=== PATIENT | female | born 1945 | race Caucasian/White ===

== ENCOUNTER → 2024-10-05 | Outpatient (CLI) | payer MEDICARE, BC, SELFPAY ==
[2024-10-05 10:38] LABS: Basophils % (Auto) 1 % (0-2.5); Eosinophils # (Auto) 0.2 Thou/mm3 (0.0-0.5); Eosinophils % (Auto) 4 % (0-10); Hematocrit 37.1 % (36.0-46.0); Hemoglobin 12.2 g/dL (12.0-16.0); Immature Granulocytes % (Auto) 0 % (0-0); Immature Granulocytes Auto 0.01 Thou/mm3 (0.00-0.00); Lymphocytes # (Auto) 1.4 Thou/mm3 (1.0-4.8); Lymphocytes % (Auto) 31 % (10-50); Mean Corpuscular HGB Conc 32.9 g/dl (31.0-37.0); Mean Corpuscular Hemoglobin 28.5 pg (25.0-35.0); Mean Corpuscular Volume 87 fL (80-100); Monocytes # (Auto) 0.3 Thou/mm3 (0.0-0.8); Monocytes % (Auto) 7 % (0-12); Neutrophils # (Auto) 2.6 Thou/mm3 (1.8-7.7); Neutrophils % (Auto) 57 % (37-80); Nucleated Red Blood Cell % 0 /100 WBC (0); Platelet Count 181 Thou/mm3 (140-440); RDW Standard Deviation 46.8 fL (36.4-46.3); Red Blood Count 4.28 Miln/mm3 (4.00-5.20); White Blood Count 4.6 Thou/mm3 (3.6-11.0)
[2024-10-05 10:43] LABS: Glucose Estimated Average 217 mg/dL (80-131); Hemoglobin A1C 9.2 % Hgb (4.8-6.0)
[2024-10-05 10:55] LABS: Alanine Aminotransferase 13 U/L (10-49); Albumin, Serum 4.1 gm/dL (3.4-4.8); Albumin/Globulin Ratio 1.6 (1.2-2.2); Alkaline Phosphatase 132 U/L (46-116); Anion Gap 9 (7-16); Aspartate Amino Transferase 28 U/L (0-34); BUN/Creatinine Ratio 33 Ratio (12-20); Bilirubin,Direct 0.1 mg/dL (0.0-0.3); Bilirubin,Total 0.4 mg/dL (0.3-1.2); Blood Urea Nitrogen 36 mg/dL (9-23); Calcium 9.3 mg/dL (8.3-10.6); Calcium (Corrected) 9.3 mg/dL (8.5-10.1); Carbon Dioxide 28.2 mMol/L (20.0-31.0); Chloride 105 mMol/L (98-107); Cholesterol 154 mg/dL (132-200); Creatinine (Component) 1.1 mg/dL (0.6-1.3); Globulin 2.6 gm/dL (2.3-3.5); Glucose 210 mg/dL (74-106); HDL Cholesterol 52 mg/dL (40-60); LDL Cholesterol,Calculated 75 mg/dL (0-130); Osmolality,Calculated 297 (275-295); Phosphorous 3.9 mg/dL (2.4-5.1); Potassium 3.5 mMol/L (3.4-5.1); Sodium 142 mMol/L (136-145); Thyroid Stimulating Hormone 2.31 uIU/mL (0.55-4.78); Total Protein 6.7 gm/dL (5.7-8.2); Triglycerides 134 mg/dL (30-150); eGFR 50 See Note
[2024-10-05 11:15] LABS: Collection Type, Urine Clean Catch
[2024-10-05 11:59] LABS: Bacteria,Urine 2+; Bilirubin,Urine Negative (Negative); Blood,Urine Trace (Negative); Calcium Oxalate Crystals,Urine Rare; Color,Urine Yellow (Lt Yel-Yel); Glucose, Urine 2+ (Negative); Ketones,Urine Negative (Negative); Leukocyte Esterase,Urine Positive (Negative); Nitrite,Urine Negative (Negative); PH,Urine 5.5 (5.0-7.0); Protein,Urine 1+ (Neg - Trace); RBC,Urine 4 /hpf (0-3); Specific Gravity,Urine 1.028 (1.001-1.035); Squamous Epithelial Cell,Urine 6 /hpf (0-5); Transitional Epi Cells,Urine 1 /hpf (0-5); Urobilinogen,Urine Negative mg/dL (0.0-1.0); WBC,Urine 12 /hpf (0-5)
[2024-10-05 12:17] LABS: Clarity,Urine Hazy (Clear/Hazy)
[2024-10-10 06:51] LABS: C-Peptide* 1.44 ng/mL (0.80-3.85)
== END | disposition home or self-care (01) ==
LOC: COPL 09:28
PROVIDERS: PCP Internal Medicine; Referring Provider Internal Medicine; Visit Provider Internal Medicine
DX: E11.9 Type 2 diabetes mellitus without complications (principal); E78.5 Hyperlipidemia, unspecified; I10 Essential (primary) hypertension
CPT/HCPCS: 36415; 80053; 80061; 81001; 82248; 83036; 84100; 84443; 84681; 85025

== ENCOUNTER → 2024-11-24 | Outpatient (CLI) | payer MEDICARE, BC, SELFPAY ==
[2024-11-24 10:50] LABS: Alanine Aminotransferase 14 U/L (10-49); Albumin, Serum 4.3 gm/dL (3.4-4.8); Albumin/Globulin Ratio 1.7 (1.2-2.2); Alkaline Phosphatase 142 U/L (46-116); Anion Gap 12 (7-16); Aspartate Amino Transferase 22 U/L (0-34); BUN/Creatinine Ratio 23 Ratio (12-20); Bilirubin,Total 0.3 mg/dL (0.3-1.2); Blood Urea Nitrogen 30 mg/dL (9-23); Calcium 9.5 mg/dL (8.3-10.6); Calcium (Corrected) 9.5 mg/dL (8.5-10.1); Carbon Dioxide 25.5 mMol/L (20.0-31.0); Chloride 103 mMol/L (98-107); Creatinine (Component) 1.3 mg/dL (0.6-1.3); Globulin 2.5 gm/dL (2.3-3.5); Glucose 202 mg/dL (74-106); Osmolality,Calculated 291 (275-295); Potassium 4.4 mMol/L (3.4-5.1); Sodium 140 mMol/L (136-145); Total Protein 6.8 gm/dL (5.7-8.2); eGFR 41 See Note
[2024-11-24 14:21] LABS: Cocci Serology, IgM Negative (Negative)
[2024-11-25 13:58] LABS: Cocci Serology, IgG Negative (Negative)
== END | disposition home or self-care (01) ==
LOC: COPL 09:45
PROVIDERS: PCP Internal Medicine; Referring Provider Internal Medicine; Visit Provider Internal Medicine
DX: B38.0 Acute pulmonary coccidioidomycosis (principal); N18.30 Chronic kidney disease, stage 3 unspecified
CPT/HCPCS: 36415; 80053; 86331; 86635

== ENCOUNTER → 2024-12-07 | Outpatient (CLI) | payer MEDICARE, BC, SELFPAY ==
--- NOTE | 2024-12-07 11:33 | EKG_ITS ---
[facility] Test Date: 2024-12-07 Pat Name: BJ SHEPARD Department: Room: - Gender: Female Scheduling Assistant: MONA : 1945 Requested By: Taco Collins Order Number: [id number] Reading MD: Taco Collins Measurements Intervals [place] Rate: 84 P: 171 MS: 147 QRS: 188 QRSD: 64 T: 95 QT: 330 QTc: 391 Interpretive Statements SINUS RHYTHM ARM LEADS REVERSED ATYPICAL ECG Compared to ECG 08/12/2024 14:17:31 Sinus tachycardia no longer present ST (T wave) deviation no longer present /store/S0/[id number]/ecg/[id number].pdf
[2024-12-07 12:06] LABS: Basophils % (Auto) 0 % (0-2.5); Eosinophils # (Auto) 0.1 Thou/mm3 (0.0-0.5); Eosinophils % (Auto) 2 % (0-10); Hematocrit 40.5 % (36.0-46.0); Hemoglobin 13.4 g/dL (12.0-16.0); Immature Granulocytes % (Auto) 0 % (0-0); Immature Granulocytes Auto 0.02 Thou/mm3 (0.00-0.00); Lymphocytes # (Auto) 1.3 Thou/mm3 (1.0-4.8); Lymphocytes % (Auto) 26 % (10-50); Mean Corpuscular HGB Conc 33.1 g/dl (31.0-37.0); Mean Corpuscular Hemoglobin 28.6 pg (25.0-35.0); Mean Corpuscular Volume 86 fL (80-100); Monocytes # (Auto) 0.3 Thou/mm3 (0.0-0.8); Monocytes % (Auto) 5 % (0-12); Neutrophils # (Auto) 3.4 Thou/mm3 (1.8-7.7); Neutrophils % (Auto) 66 % (37-80); Nucleated Red Blood Cell % 0 /100 WBC (0); Platelet Count 218 Thou/mm3 (140-440); RDW Standard Deviation 46.3 fL (36.4-46.3); Red Blood Count 4.69 Miln/mm3 (4.00-5.20); White Blood Count 5.1 Thou/mm3 (3.6-11.0)
[2024-12-07 12:46] LABS: Alanine Aminotransferase 12 U/L (10-49); Albumin/Globulin Ratio 1.5 (1.2-2.2); Alkaline Phosphatase 139 U/L (46-116); Anion Gap 6 (7-16); Aspartate Amino Transferase 23 U/L (0-34); BUN/Creatinine Ratio 27 Ratio (12-20); Bilirubin,Total 0.3 mg/dL (0.3-1.2); Blood Urea Nitrogen 30 mg/dL (9-23); Calcium 9.5 mg/dL (8.3-10.6); Calcium (Corrected) 9.5 mg/dL (8.5-10.1); Carbon Dioxide 29.7 mMol/L (20.0-31.0); Chloride 103 mMol/L (98-107); Creatinine (Component) 1.1 mg/dL (0.6-1.3); Globulin 2.7 gm/dL (2.3-3.5); Osmolality,Calculated 301 (275-295); Potassium 4.9 mMol/L (3.4-5.1); Sodium 139 mMol/L (136-145); Total Protein 6.7 gm/dL (5.7-8.2); eGFR 50 See Note
[2024-12-07 13:04] LABS: Glucose 417 mg/dL (74-106)
== END | disposition home or self-care (01) ==
LOC: COPL 11:05
PROVIDERS: PCP Internal Medicine; Referring Provider Surgery Vascular Surgery; Visit Provider Surgery Vascular Surgery
DX: Z01.818 Encounter for other preprocedural examination (principal); I73.9 Peripheral vascular disease, unspecified; Z79.01 Long term (current) use of anticoagulants
CPT/HCPCS: 36415; 80053; 85025; 85610; 85730; 93005

== ENCOUNTER 2025-01-13 19:15 | Inpatient (IN) | payer MEDICARE, BC, SELFPAY ==
[2025-01-13 19:36] VITALS: BP 150/71; PULSE 89; RESP 18; TEMP 36.7; O2SAT 95
--- NOTE | 2025-01-13 19:41 | XR_ITS ---
Examination: Foot, left, 3 views Technique: AP, oblique, lateral views foot, 3 views Date and time of exam: January 13, 2025 at 1900 hrs. Indications: Nonhealing sore fourth digit 2 months Findings: 3 mm linear foreign body soft tissue adjacent to the proximal phalanx second digit Severe osteopenia No acute fracture No cortical bone destruction Soft tissue vascular calcification Impression: Positive for opaque foreign body No chinyere cortical bone destruction MRI foot without contrast follow-up would best assess for early osteomyelitis
--- NOTE | 2025-01-13 19:41 | PD.EDRME ---
Rapid Medical Screening Exam E Arrival date/time: 01/13/25 19:15 79F with history of HTN, DM, CVA, HLD, PAD, toe amputation and MRSA infection presents to ED with worsening L foot pain/wound. Patient is currently on Keflex. Chief Complaint: Skin/Abscess/Foreign Body Time Seen by Provider: 01/13/25 19:40 Vital signs: Vital Signs Temperature 98.0 F 01/13/25 19:36 Pulse Rate 89 01/13/25 19:36 Respiratory Rate 18 01/13/25 19:36 Blood Pressure 150/71 H 01/13/25 19:36 Pulse Oximetry (%) 95 01/13/25 19:36 Oxygen Delivery Method Room Air 01/13/25 19:36
--- NOTE | 2025-01-13 20:23 | PD.EDSKIN ---
ED Skin Abcess FB-RME/HPI General Chief complaint: Skin/Abscess/Foreign Body Stated complaint: LEFT FOOT WOUND/PAIN Time Seen by Provider: 01/13/25 19:40 Source: patient Arrival date/time: 01/13/25 19:15 Mode of arrival: ambulatory Limitations: no limitations RME / HPI RME / HPI narrative: Dr. Jimenez?s Main ED Evaluation: 79-year-old female with a history of hypertension, diabetes mellitus, cerebrovascular accident, hyperlipidemia, peripheral artery disease, prior toe amputation, and MRSA infection presents with worsening left foot pain and an ulcerating wound despite being on Keflex. Denies any other medical complaints. Related Data Home Medications ?Medication ?Instructions ?Recorded ?Confirmed clopidogrel 75 mg tablet (Plavix) 75 mg PO QDAY #0 tabs 10/04/17 08/13/24 pregabalin 75 mg capsule 75 mg PO DAILY 05/20/21 08/13/24 rivastigmine tartrate 3 mg capsule 3 mg PO BID 05/20/21 08/13/24 rosuvastatin 20 mg tablet 20 mg PO HS 05/20/21 08/13/24 glimepiride 1 mg tablet 1 mg PO BID 06/01/23 08/13/24 Held on 08/15/24. Instructions: Resume on 08/29/24. Follow up with Dr. Peng on when to resume glimepiride, as you have been started on different medications for your diabetes. promethazine-DM 6.25 mg-15 mg/5 mL 5 ml PO TID 08/12/24 08/13/24 oral syrup lisinopril 10 mg tablet 10 mg PO QDAY 08/13/24 08/13/24 Previous Rx's ?Medication ?Instructions ?Recorded fluconazole 200 mg tablet 200 mg PO BID 30 days #60 tabs 08/15/24 insulin glargine 100 unit/mL (3 10 unit (0.1 mL) subcut QPM 30 08/15/24 mL) subcutaneous pen (Lantus days #3 mL Solostar U-100 Insulin) pen needle, diabetic 32 gauge x #120 ea 08/15/24 1/6 benzonatate 100 mg capsule 100 mg PO TID cough #14 caps 08/16/24 blood pressure test kit-medium #1 ea 08/16/24 insulin lispro 100 unit/mL 3 unit (0.03 mL) subcut TIDWMEAL 1 08/16/24 subcutaneous pen (Humalog KwikPen month #15 mL (U-100) Insulin) Allergies Allergy/AdvReac Type Severity Reaction Status Date / Time No Known Allergies Allergy Verified 01/13/25 23:11 Review of Systems Review of Systems Systems Reviewed: All systems reviewed, normal except as documented Past Medical History Past Medical History NEUROLOGIC: Positive Neurological Disorders, Cerebrovascular Accident, Transient Ischemic Attacks (TIA), Dementia and Alzheimer's Disease; Negative Seizures CARDIAC: Positive Cardiac Disorders, Coronary Artery Disease, Hypercholesterolemia and Hypertension; Negative Congestive Heart Failure RESPIRATORY: Negative Chronic Obstructive Pulmonary Disease (COPD) or Asthma GASTROINTESTINAL: Positive Gastrointestinal Disorders GENITOURINARY: Positive Genitourinary Disorders; Negative Renal Disease REPRODUCTIVE: Positive Previous Pregnancies MUSCULOSKELETAL: Positive Musculoskeletal Disorders, Arthritis, Carpal Tunnel Syndrome and Fractures ENDOCRINE: Positive Endocrine Disorders and Diabetes Mellitus Type 2; Negative Diabetes Mellitus Type 1 HEMATOLOGIC: Negative Blood Disorders or Anemia PSYCHO/SOCIAL: Positive Depression and Anxiety OTHER HISTORY: Positive Hospitalization, Falls and MRSA; Negative Blood Transfusions, Anesthesia Reactions or Cancer Surgical History SURGICAL: Positive Abdominal Surgery and Amputation (all right toes); Negative Cardiac Surgery Social History SMOKING STATUS: Never smoker SECOND HAND EXPOSURE: No SUBSTANCE USE: does not use ED Exam Narrative Physical exam: Physical exam reveals mild swelling of all left four toes, with the fourth toe exhibiting a chronic ulcer on the lateral aspect that appears dark black but non-gangrenous; all toes are erythematous, with redness extending up the anterior leg, which is minimally tender to touch, without drainage. General Limitations: Present no limitations General appearance: Present alert and in no apparent distress Head Head exam: Present atraumatic Eye Eye exam: Present normal appearance, PERRL and EOMI ENT ENT exam: Present normal exam, normal oropharynx and mucous membranes moist Neck Neck exam: Present normal inspection, full ROM and trachea midline Chest Chest inspection: Present normal inspection and symmetric chest wall rise Respiratory Respiratory exam: Present normal lung sounds bilaterally Cardiovascular Cardiovascular exam: Present regular rate, normal rhythm and normal heart sounds Abdominal Exam Abdominal exam: Present soft and normal bowel sounds Extremities Exam Extremities exam: Present normal inspection, full ROM and other (toes to the right foot are missing s/p amputation) Back Exam Back exam: Present normal inspection and full ROM Neurological Exam Neurological exam: Present alert, oriented X3 and CN II-XII intact Psychiatric Psychiatric exam: Present normal affect and normal mood Skin Skin exam: Present warm, dry, intact and normal color Course Quality Measures none Orders Category Date Time Status COVID-19 Screening Questionnaire NOW Care 01/14/25 05:[address] Screening NOW Care 01/13/25 22:34 Active Decision to Admit X1 Care 01/14/25 05:[address] angio LE LT Stat Exams 01/13/25 22:33 Taken XR foot comp LT min 3V Stat Exams 01/13/25 19:41 Completed CBC Stat Lab 01/13/25 20:42 Completed CMP [Comprehensive Metabolic Panel] Stat Lab 01/13/25 20:42 Completed CRP [C-Reactive Protein] Stat Lab 01/13/25 20:42 Completed ESR [Sed Rate (ESR)] Stat Lab 01/13/25 20:42 Completed Piper/Tazo 3.375 gm Premix [Zosyn] Med 01/13/25 22:37 Discontinued 3.375 gm in 50 ml IV X1 Vancomycin Inj 1,000 mg Med 01/14/25 02:00 Discontinued Sodium Chloride 0.9% 250 ml [Ns] 250 ml IV X1 fentaNYL INJ [Sublimaze Inj] Med 01/14/25 02:16 Discontinued 50 mcg IVP X1 ONE Vital Signs Vital signs: Vital Signs Temperature 98.0 F 01/13/25 19:36 Pulse Rate 89 01/13/25 19:36 Respiratory Rate 18 01/13/25 19:36 Blood Pressure 150/71 H 01/13/25 19:36 Pulse Oximetry (%) 95 01/13/25 19:36 Oxygen Delivery Method Room Air 01/13/25 19:36 Skin / Abscess / Foreign Body MDM Narrative MDM Narrative:: 2204: Spoke with Dr. Peng, the patient's PCP, who states the patient has a history of PVD. Requests getting a CTA. Doppler shows the patient has equal dorsalis pedis pulses bilaterally. 0300: Patient's CTA did not get read by Dr. Peterson and was not sent to teleradiology. It is now being sent and is pending to be read. 0440: I spoke with the patient's daughter, Cathy, [id number], who states the patient recently had a procedure done by Dr. Hood at [facility] 2 weeks ago. Patient is not complaining about any calf swelling. 0444: Dr. Hood is not on-call at [facility] today. 0502: Discussed case with Dr. Peng, the patient's PCP, regarding admission. States she will accept the patient for admission. Scribe Attestation: I, Jaren Sosa, am scribing for and in the presence of Dr. Jimenez. Provider Notation: Although this document has been carefully reviewed, there may still be some phonetic and other typographical errors. These errors are purely grammatical due to imperfections in the software program and should not be construed in any way to compromise the substance of the patient's medical care during this visit. Patient data External records reviewed:: [facility] previous records Clinical information provided by:: patient Social determinants that could affect healthcare access:: none Patient has the following chronic illnesses:: see PMH How is presenting disease/condition affected by chronic disease/condition?: uneffected by Evaluation data The following diagnostics were reviewed and interpreted by me:: lab results and radiology exam(s) Lab and/or radiology exams considered but not ordered:: na Interpretation Summary: I personally reviewed the radiology data and agree with the radiologist's interpretation. Examination: Foot, left, 3 views Technique: AP, oblique, lateral views foot, 3 views Date and time of exam: January 13, 2025 at 1900 hrs. Indications: Nonhealing sore fourth digit 2 months Findings: 3 mm linear foreign body soft tissue adjacent to the proximal phalanx second digit Severe osteopenia No acute fracture No cortical bone destruction Soft tissue vascular calcification Impression: Positive for opaque foreign body No chinyere cortical bone destruction MRI foot without contrast follow-up would best assess for early osteomyelitis Dictated By: Preet Peterson MD [employer] Preliminary Report Draft Patient: BJ SHEPARD. Record#: [id number] Birthdate: 1945 Age/Sex: 79 / F Location: [facility] Attending Dr: Ordering Physician: Date of Service: Procedure(s): Accession Number(s): cc: ~ CT angiogram of the left lower extremity with intravenous contrast (axial sections with sagittal and coronal reformats) January 13, 2025 2326 hours Clinical History: Hx PVD, foot cellulitis No prior study is available for comparison. Findings: The left common iliac, internal and external iliac arteries demonstrate atheromatous calcification and are patent. There are calcified and noncalcified atheromatous plaques with mild stenosis of the superficial femoral artery. The left deep femoral artery is patent. There are atheromatous plaques with mild stenosis of the proximal popliteal artery. There is occlusion of the distal popliteal artery and tibioperoneal trunk. The evaluation of the infrapopliteal artery is limited due to dense atheromatous plaques. There are calcified atheromatous plaques with mild to moderate stenosis of the anterior tibial, posterior tibial and peroneal arteries. The left dorsalis pedis artery is patent. There is diffuse soft tissue edema and fat stranding in the mid and distal leg, ankle and foot, suggestive of superficial cellulitis. No discrete soft tissue abscess, gas or soft tissue ulceration is seen Impression: Occlusion of the distal popliteal artery and tibioperoneal trunk with reconstitution of the infrapopliteal arteries. Limited evaluation of the infrapopliteal arteries due to atheromatous plaques. Findings suggestive of diffuse superficial cellulitis in the mid, distal leg, ankle and foot. No soft tissue abscess. Report Electronically Signed By: Holden Maldonado 01/14/2025 4:10:10 AM [EST] Medications / Prescriptions Medications or Prescriptions considered but not ordered:: na Medication administrations:: Medication Administration History Discontinued Medications Fentanyl Citrate (Fentanyl Cit Inj 50 Mcg/Ml Amp 2ml) 50 mcg IVP X1 ONE Stop: 01/14/25 02:17 Last Admin: 01/14/25 02:31 Dose: 50 mcg Documented By: CVL Vancomycin HCl 1,000 mg/ (Sodium Chloride) 250 mls @ 150 mls/hr IV X1 ONE Stop: 01/14/25 03:39 Last Infusion: 01/14/25 04:21 Dose: Infused Documented By: Admin: 01/14/25 02:39 Dose: 150 mls/hr Documented By: CVL Piperacillin/Tazobactam/Dextrose (Zosyn) 3.375 gm in 50 mls @ 100 mls/hr IV X1 ONE Stop: 01/13/25 23:06 Last Infusion: 01/14/25 00:52 Dose: Infused Documented By: Admin: 01/14/25 00:00 Dose: 100 mls/hr Documented By: NQ as above, if any Consultations Consultation(s) initiated? (list below): Yes Consultation #1 (Physician, Specialty, Details): See MDM narrative. Diagnosis Skin/Abscess Differential Diagnosis: abscess of skin or subcutaneous tissue and other (cellulitis, osteomyelitis, lymphangitis) Most likely diagnosis given after review of the tests above:: see clinical impression below Admission Indicated Admission indicated?: indicated Admission Request Was there a request for admission?: Yes Admission Attestation Admission request attestation: Discussed case with [] from Hospitalist service regarding admission. Discussed patients ED course, exam findings, labs, and radiology results. The Hospitalist [agrees,declines] to accept the patient for admission. Disposition Plan Disposition Plan: Admit Discharge Plan Plan Patient Disposition: Admit Acute Care w/in Hospital Patient condition on transfer: Stable Prescriptions/Referrals Prescriptions/Med Rec: No Action clopidogrel [Plavix] 75 MG tablet 75 mg PO QDAY Qty: 0 rosuvastatin 20 mg tablet 20 mg PO HS Patient Comments: TAKE 1 TABLET BY MOUTH EVERY DAY AT NIGHT pregabalin 75 mg capsule 75 mg PO DAILY Patient Comments: TAKE 1 CAPSULE BY MOUTH EVERY DAY rivastigmine tartrate 3 mg capsule 3 mg PO BID Patient Comments: TAKE 1 CAPSULE BY MOUTH TWICE A DAY glimepiride 1 mg tablet 1 mg PO BID Patient Comments: TAKE 1 TABLET BY MOUTH TWICE A DAY promethazine-DM 6.25-15 mg/5 mL syrup 5 ml PO TID Patient Comments: TAKE 5 ML BY MOUTH THREE TIMES A DAY lisinopril 10 mg tablet 10 mg PO QDAY Patient Comments: TAKE 1 TABLET BY MOUTH EVERY DAY fluconazole 200 mg tablet 200 mg PO BID 30 Days Qty: 60 2RF insulin glargine [Lantus Solostar U-100 Insulin] 100 unit/mL (3 mL) insulin pen 10 unit subcut QPM 30 Days Qty: 3 2RF (DME) pen needle, diabetic 32 gauge x 1/6 needle See Rx Instructions .Route Qty: 120 3RF Rx Instructions: As directed for insulin 4x/day (DME) blood pressure test kit-medium Kit See Rx Instructions .Route Qty: 1 0RF Rx Instructions: As directed to monitor blood pressure daily benzonatate 100 mg capsule 100 mg PO TID MDD 600mg/day Qty: 14 0RF insulin lispro [Humalog KwikPen Insulin] 100 unit/mL insulin pen 3 unit subcut TIDWMEAL 30 Days Qty: 15 2RF Referrals: No Primary/Family,Physician [Referring Provider] - In 1 week Problem List Clinical Impression: Diabetic foot ulcer, Cellulitis, Hx of peripheral vascular disease Patient/Caregiver Discharge Instructions Print Language: [place] Stand Alone Forms: [employer]hum[employer] Award Info., Patient Portal Info Letter
[2025-01-13 21:47] LABS: Basophils % (Auto) 1 % (0-2.5); Eosinophils # (Auto) 0.2 Thou/mm3 (0.0-0.5); Eosinophils % (Auto) 4 % (0-10); Hematocrit 38.8 % (36.0-46.0); Hemoglobin 12.5 g/dL (12.0-16.0); Immature Granulocytes % (Auto) 0 % (0-0); Immature Granulocytes Auto 0.02 Thou/mm3 (0.00-0.00); Lymphocytes # (Auto) 1.7 Thou/mm3 (1.0-4.8); Lymphocytes % (Auto) 30 % (10-50); Mean Corpuscular HGB Conc 32.2 g/dl (31.0-37.0); Mean Corpuscular Hemoglobin 28.3 pg (25.0-35.0); Mean Corpuscular Volume 88 fL (80-100); Monocytes # (Auto) 0.5 Thou/mm3 (0.0-0.8); Monocytes % (Auto) 9 % (0-12); Neutrophils # (Auto) 3.2 Thou/mm3 (1.8-7.7); Neutrophils % (Auto) 56 % (37-80); Nucleated Red Blood Cell % 0 /100 WBC (0); Platelet Count 252 Thou/mm3 (140-440); RDW Standard Deviation 44.2 fL (36.4-46.3); Red Blood Count 4.42 Miln/mm3 (4.00-5.20); White Blood Count 5.7 Thou/mm3 (3.6-11.0)
[2025-01-13 21:54] LABS: Chloride 105 mMol/L (98-107); Sodium 143 mMol/L (136-145)
[2025-01-13 21:55] LABS: Alanine Aminotransferase 10 U/L (10-49); Albumin, Serum 4.3 gm/dL (3.4-4.8); Albumin/Globulin Ratio 1.4 (1.2-2.2); Alkaline Phosphatase 130 U/L (46-116); Anion Gap 9 (7-16); Aspartate Amino Transferase 20 U/L (0-34); BUN/Creatinine Ratio 29 Ratio (12-20); Bilirubin,Total 0.5 mg/dL (0.3-1.2); Blood Urea Nitrogen 29 mg/dL (9-23); Calcium 9.4 mg/dL (8.3-10.6); Calcium (Corrected) 9.4 mg/dL (8.5-10.1); Glucose 169 mg/dL (74-106); Osmolality,Calculated 294 (275-295); Total Protein 7.3 gm/dL (5.7-8.2); eGFR 57 See Note
[2025-01-13 22:11] LABS: Sed Rate (ESR) 54 mm/hr (0-30)
[2025-01-13 22:21] VITALS: BP 153/66; PULSE 90; RESP 18; TEMP 36.9; O2SAT 96
[2025-01-13 22:22] VITALS: BP 153/66; PULSE 90; RESP 18; TEMP 36.7; O2SAT 97
--- NOTE | 2025-01-13 22:33 | XR_ITS ---
Examination: CTA left lower extremity with intravenous contrast 2-D reconstructions 3-D reconstructions, vascular Date and time of exam: 01/13/2025 at 11:26 PM Indications: Nonhealing wounds and discoloration left toes 2 weeks CTDI: vol (mGy) 1 DLP: (mGycm) 406 Technique: Multiple axial sections of the thorax have been obtained. 3 mm slice thickness, from below the hemidiaphragms to above the apices of the lungs. Mediastinal and lung density settings have been obtained. 2-D sagittal and coronal reconstructions. 3-D angiographic renderings, 3-D volume renderings, 3D post processing, vascular maximum intensity projections obtained. Contrast administered is 130 cc Isovue-370. Low dose protocols were performed. One or more of the following dose reduction techniques were used; automated exposure control, adjustment of the mA and/or KV according to patient size, use of iterative reconstruction technique. Findings: Left external iliac or common femoral arteries intact Heavy calcification left superficial femoral artery with multiple mild to moderate stenoses Occlusion of the proximal popliteal artery Heavy calcification trifurcation vessels but no significant opacification Impression: Occlusion of the proximal popliteal artery, no significant filling of the trifurcation arterial vessels
[2025-01-14] MEDS: PIPER/TAZO 3.375 GM PREMIX 3.375 GM/50 ML BAG IV
[2025-01-14 01:01] VITALS: BP 112/56; PULSE 100; RESP 18; TEMP 36.8; O2SAT 96
[2025-01-14] MEDS: fentaNYL CIT INJ 50 mCg/ML AMP 2ML IVP (02:31)
[2025-01-14] MEDS: Vancomycin Inj 1,000 MG in SODIUM CHLORIDE 0.9% 250 ML 250 ML 150 MG IV (02:39)
--- NOTE | 2025-01-14 04:10 | PRELIM_ITS ---
CT angiogram of the left lower extremity with intravenous contrast (axial sections with sagittal and coronal reformats) January 13, 2025 2326 hours Clinical History: Hx PVD, foot cellulitis No prior study is available for comparison. Findings: The left common iliac, internal and external iliac arteries demonstrate atheromatous calcification and are patent. There are calcified and noncalcified atheromatous plaques with mild stenosis of the superficial femoral artery. The left deep femoral artery is patent. There are atheromatous plaques with mild stenosis of the proximal popliteal artery. There is occlusion of the distal popliteal artery and tibioperoneal trunk. The evaluation of the infrapopliteal artery is limited due to dense atheromatous plaques. There are calcified atheromatous plaques with mild to moderate stenosis of the anterior tibial, posterior tibial and peroneal arteries. The left dorsalis pedis artery is patent. There is diffuse soft tissue edema and fat stranding in the mid and distal leg, ankle and foot, suggestive of superficial cellulitis. No discrete soft tissue abscess, gas or soft tissue ulceration is seen Impression: Occlusion of the distal popliteal artery and tibioperoneal trunk with reconstitution of the infrapopliteal arteries. Limited evaluation of the infrapopliteal arteries due to atheromatous plaques. Findings suggestive of diffuse superficial cellulitis in the mid, distal leg, ankle and foot. No soft tissue abscess. Report Electronically Signed By: Holden Maldonado 01/14/2025 4:10:10 AM [EST]
[2025-01-14 05:21] VITALS: BP 141/72; PULSE 93; RESP 18; O2SAT 96
[2025-01-14 07:54] VITALS: BP 153/52; PULSE 77; RESP 14; TEMP 36.8; O2SAT 97
[2025-01-14 10:41] VITALS: BMI 29.8
--- NOTE | 2025-01-14 11:00 | PD.RESHP ---
Documentation for date of: 01/14/25 HPI History of Present Illness History of present illness: A 79-year-old female with past medical history of hypertension, type 2 diabetes mellitus, history of CVA, PAD, s/p right toes amputation, history of MRSA infection, diagnosed with valley fever in 08/2024 presented to the hospital with chief complaints of worsening left foot and toe swelling. Patient reported that she is having left foot cellulitis since 3 months which was a gradually progressing, also stated that she is following with podiatry once in every 2 weeks. Despite that, the swelling, redness and blackish discoloration of toes of left foot progressed and over the last 3 days patient had a severe tingling and also noticed foul-smelling from the foot for which patient came to the hospital. Denies fever, chest pain, shortness of breath, lower extremity swelling, abdominal pain. ED Course: -Initial vitals were blood pressure 150/71 mmHg, pulse rate 89 bpm, respiratory rate 18/min, temperature 90 ?F, SpO2 95% with room air -Labs significant for WBC 5.7, Hb 12.5, platelets 252, sodium 143, potassium 4, BUN 29, creatinine 1. -Lower extremity CTA showed occlusion of proximal popliteal artery with no significant filling of trifurcation arterial vessels. Foot x-ray showed positive for otic foreign body. No chinyere cortical bone destruction. -In the ED, patient was given vancomycin and Zosyn -Patient was admitted for gangrenous diabetic foot Past medical history: Hypertension, diabetes, stroke, hyperlipidemia, PAD, diabetic foot ulcer, shingles, MRSA bacteremic infection, valley fever Past surgical history: Cholecystectomy, s/p fracture no surgery, phalangectomy of foot in view of diabetic ulcer, bladder stimulator implanted by Dr. Bay for urinary retention. Social history: Denies smoking, red, illicit drug abuse Family history: Cancer in brother and hypertension in mom. Review of Systems Review of Systems Systems Reviewed: All systems reviewed, normal except as documented Exam Vital Signs Temp Pulse Resp BP Pulse Ox O2 Del Method 98.9 F 80 18 125/62 97 Room Air 01/14/25 12:00 01/14/25 12:00 01/14/25 12:01/14/25 12:01/14/25 12:01/14/25 11:13 Narrative Exam General: Awake. HEENT: Normocephalic, atraumatic, mucous membranes moist. Heart: Regular rate and rhythm, no murmurs. Lungs: Clear to auscultation with no wheezing or crackles. Abdomen: Soft, nondistended, nontender, positive bowel sounds. ?No guarding or rebound tenderness. Neurologic: Alert and oriented x3, no gross neurological deficit, and patient able to move all 4 extremities. Extremities: absent pulse in left dorsalis pedis and posterior tibial. Gangrenous 2nd toe with surrounding cellulitis in the left foot. amputation of all 5 toes in RLE Skin: No rash or ecchymoses. Results: Labs 01/13/25 20:42 01/13/25 20:42 Labs: Short CBC 01/13/25 Range/Units 20:42 WBC 5.7 (3.6-11.0) Thou/mm3 Hgb 12.5 (12.0-16.0) g/dL Hct 38.8 (36.0-46.0) % Plt Count 252 D (140-440) Thou/mm3 BMP 01/13/25 20:42 Sodium 143 Potassium 4.0 Chloride 105 Carbon Dioxide 29.0 BUN 29 H Creatinine 1.0 Glucose 169 H Calcium 9.4 Liver Function 01/13/25 Range/Units 20:42 Total Bilirubin 0.5 (0.3-1.2) mg/dL AST 20 (0-34) U/L ALT 10 (10-49) U/L Alkaline Phosphatase 130 H (46-116) U/L Albumin 4.3 (3.4-4.8) gm/dL Quality Measures Quality Measures none Advance care planning discussed with:: patient and child Medications Home Medications and Allergies Home Medications ?Medication ?Instructions ?Recorded ?Confirmed ?Type clopidogrel 75 mg tablet (Plavix) 75 mg PO QDAY #0 tabs 10/04/17 08/13/24 History pregabalin 75 mg capsule 75 mg PO DAILY 05/20/21 08/13/24 History rivastigmine tartrate 3 mg capsule 3 mg PO BID 05/20/21 08/13/24 History rosuvastatin 20 mg tablet 20 mg PO HS 05/20/21 08/13/24 History glimepiride 1 mg tablet 1 mg PO BID 06/01/23 08/13/24 History Held on 08/15/24. Instructions: Resume on 08/29/24. Follow up with Dr. Peng on when to resume glimepiride, as you have been started on different medications for your diabetes. promethazine-DM 6.25 mg-15 mg/5 mL 5 ml PO TID 08/12/24 08/13/24 History oral syrup lisinopril 10 mg tablet 10 mg PO QDAY 08/13/24 08/13/24 History Allergies Allergy/AdvReac Type Severity Reaction Status Date / Time No Known Allergies Allergy Verified 01/13/25 23:11 Visit Medications Atorvastatin Calcium (Atorvastatin Calcium 20 Mg Tablet) 80 mg PO HS [facility] Stop: 02/13/25 20:59 Clopidogrel Bisulfate (Clopidogrel Bisulfate 75 Mg Tablet) 75 mg PO QDAY [facility] Stop: 02/13/25 08:59 Dextrose (Dextrose 50%-Water Inj 50 Ml Syringe) 25 ml IV Q15MIN PRN PRN Reason: BG 50-70 responsive npo pt Stop: 02/13/25 08:48 Fluconazole (Fluconazole 100 Mg Tablet) 200 mg PO BID [facility] Stop: 01/21/25 08:59 Glimepiride (Glimepiride 1 Mg Tablet) 1 mg PO BID [facility] Stop: 02/13/25 08:59 Glucagon (Glucagon Inj 1 Mg Vial) 1 mg IM Q15MIN PRN PRN Reason: BG <70, and no IV access Piperacillin/Tazobactam/Dextrose (Zosyn) 3.375 gm in 50 mls @ 12.5 mls/hr IV Q8HR [facility] Stop: 01/21/25 08:59 Insulin Glargine (Insulin Glargine (Lantus) 5 Unit/0.05 Ml (Per 5 Units)) 10 unit SC QDAY [facility] Stop: 02/13/25 08:59 Insulin Human Lispro (Insulin Lispro (Admelog) 1 Unit/0.01 Ml Unit) 0 unit SC [facility]; Protocol Stop: 02/13/25 11:29 Lisinopril (Lisinopril 2.5 Mg Tablet) 10 mg PO QDAY [facility] Stop: 02/13/25 08:59 Home Medication- Please Speak With Patient Caregiver To Have Rx Brought To [facility] 3 mg PO BID [facility] Stop: 02/13/25 08:59 Pregabalin (Pregabalin 75 Mg Capsule) 75 mg PO DAILY [facility] Stop: 02/13/25 08:59 Discontinued Medications Fentanyl Citrate (Fentanyl Cit Inj 50 Mcg/Ml Amp 2ml) 50 mcg IVP X1 ONE Stop: 01/14/25 02:17 Last Admin: 01/14/25 02:31 Dose: 50 mcg Heparin Sodium (Porcine) (Heparin Sod Inj 5000 Unit/Ml Vial) 5,000 unit SC Q8HR [facility] Stop: 01/14/25 08:54 Vancomycin HCl 1,000 mg/ (Sodium Chloride) 250 mls @ 150 mls/hr IV X1 ONE Stop: 01/14/25 03:39 Last Infusion: 01/14/25 04:21 Dose: Infused Piperacillin/Tazobactam/Dextrose (Zosyn) 3.375 gm in 50 mls @ 100 mls/hr IV X1 ONE Stop: 01/13/25 23:06 Last Infusion: 01/14/25 00:52 Dose: Infused Assessment & Plan Plan A 79-year-old female with past medical history of hypertension, type 2 diabetes mellitus, history of CVA, PAD, s/p right toes amputation, history of MRSA infection, diagnosed with valley fever in 08/2024 presented to the hospital with chief complaints of worsening left foot and toe swelling. # Diabetic gangrene of left foot # Underlying PAD -Patient had history of severe PAD, right toe amputations -Patient reported that she had cellulitis of left foot since 3 months and is following with a dairy nutritionist -Since last 3 days, patient noticed worsening swelling, redness and a blackish discoloration of left toes -Also reported that she had tingling and numbness of left foot, noticed foul-smelling discharge from left foot -Lower extremity CTA showed occlusion of proximal popliteal artery with no significant filling of trifurcation arterial vessels. -Foot x-ray showed positive for foreign body. No chinyere cortical bone destruction. Plan -Consult general surgery -Started on Zosyn [01/14- -Resumed clopidogrel and atorvastatin #Diabetes mellitus -Glucose at the time of admission is 169 -A1c is 9.2 on 10/05/2024 Plan -Will order HbA1c -Started on low carbohydrate diet -Started on insulin sliding scale. -Started insulin Lantus 10 units at night. # Hyperlipidemia -Patient is using atorvastatin 80 Mg at home Plan -Started on atorvastatin 80 Mg p.o. at bedtime # Hypertension -Patient blood pressures at the time of admission is 150/71 mmHg. -Patient is on lisinopril 10 Mg p.o. at home Plan -Resumed lisinopril 10 Mg. -Continue monitoring her blood pressures # History of stroke -Is on clopidogrel at home -Resumed clopidogrel Hospital Maintenance: Dispo: medsurg DVT ppx: SCD GI ppx: Pantoprazole Diet: Low carbohydrate diet IV lines: Peripheral Code status: Full code Patient plan of care was discussed with the attending physician, Dr. jb Robledo, PGY1 Attending Provider Attestation/Addendum Patient seen and examined with resident physician Dr. Sandoval. Note reviewed, agree with findings and recommendations. Patient presented with left foot erythema, left fourth toe discoloration and questionable early gangrene. Daughter, 2 grandkids at the bedside. Reviewed all the labs with them. CT angiography showed significant peripheral vascular disease with no flow below the popliteal artery. Family wants her to go to higher level of care for vascular surgical intervention. I did explain to them that there is no vascular surgery machine feeder floorperson in our hospital. Family wants to sign AGAINST MEDICAL ADVICE and take her. Did explain the risks of signing AMA, they understood and left hospital AMA.
[2025-01-14 11:13] VITALS: BP 122/51; PULSE 79; TEMP 36.9; O2SAT 96
[2025-01-14 12:00] VITALS: BP 125/62; PULSE 80; RESP 18; TEMP 37.2; O2SAT 97
--- NOTE | 2025-01-14 12:03 | PC.NURSE ---
Dr. Peng at bedside to assess. Pt wanting to leave AMA to seek higher level of care. Family at bedside and agrees with decision. AMA for signed.
--- NOTE | 2025-01-14 14:48 | ESDS_ITS ---
Planned Discharge Date 01/14/25 DS: Providers Provider Date of admission: 01/14/25 08:49 Primary care physician: Amee Peng MD Admitting Provider: Amee Peng MD Attending Provider on Admission: Amee Peng MD Consults: 01/14/25 08:50 Referral Registered Dietitian Routine Comment: Attending Provider on DC: Jaime Robledo MD Discharging Provider: Jaime Robledo MD DS: Diagnosis Problem List Completed Was Problem List Reviewed/Reconciled?: Yes Hospital Course Hospital Course Hospital course: A 79-year-old female with past medical history of hypertension, type 2 diabetes mellitus, history of CVA, PAD, s/p right toes amputation, history of MRSA infection, diagnosed with valley fever in 08/2024 presented to the hospital with chief complaints of worsening left foot and toe swelling. Labs significant for WBC 5.7, Hb 12.5, platelets 252, sodium 143, potassium 4, BUN 29, creatinine 1. Lower extremity CTA showed occlusion of proximal popliteal artery with no significant filling of trifurcation arterial vessels. Foot x-ray showed positive for otic foreign body. No chinyere cortical bone destruction. Patient was admitted for gangrenous diabetic foot Patient granddaughter and daughter is at bedside, explained about the risks and prognosis of patient's current medical condition. Family wants to have a higher level of care for the patient as vascular surgeon is not available in the hospital. So decided to leave AGAINST MEDICAL ADVICE # Diabetic gangrene of left foot # Underlying PAD #Diabetes mellitus # Hyperlipidemia # Hypertension # History of stroke Patient plan of care was discussed with the attending physician, Dr. Ginette Robledo, PGY1 Status at Discharge Cognitive/behavioral status at discharge: stable Functional status at discharge: wheelchair bound Overall status at discharge: patient is not back to baseline Time Spent with Patient Time attestation: Total time spent providing and/or coordinating discharge services:35min Exam Vital Signs Temp Pulse Resp BP Pulse Ox O2 Del Method 98.9 F 80 18 125/62 97 Room Air 01/14/25 12:00 01/14/25 12:00 01/14/25 12:00 01/14/25 12:00 01/14/25 12:00 01/14/25 11:13 Discharge Plan Plan Patient condition on transfer: Stable Prescriptions/Referrals Prescriptions/Med Rec: No Action clopidogrel [Plavix] 75 MG tablet 75 mg PO QDAY Qty: 0 rosuvastatin 20 mg tablet 20 mg PO HS Patient Comments: TAKE 1 TABLET BY MOUTH EVERY DAY AT NIGHT pregabalin 75 mg capsule 75 mg PO DAILY Patient Comments: TAKE 1 CAPSULE BY MOUTH EVERY DAY rivastigmine tartrate 3 mg capsule 3 mg PO BID Patient Comments: TAKE 1 CAPSULE BY MOUTH TWICE A DAY glimepiride 1 mg tablet 1 mg PO BID Patient Comments: TAKE 1 TABLET BY MOUTH TWICE A DAY promethazine-DM 6.25-15 mg/5 mL syrup 5 ml PO TID Patient Comments: TAKE 5 ML BY MOUTH THREE TIMES A DAY lisinopril 10 mg tablet 10 mg PO QDAY Patient Comments: TAKE 1 TABLET BY MOUTH EVERY DAY fluconazole 200 mg tablet 200 mg PO BID 30 Days Qty: 60 2RF insulin glargine [Lantus Solostar U-100 Insulin] 100 unit/mL (3 mL) insulin pen 10 unit subcut QPM 30 Days Qty: 3 2RF (DME) pen needle, diabetic 32 gauge x 1/6 needle See Rx Instructions .Route Qty: 120 3RF Rx Instructions: As directed for insulin 4x/day (DME) blood pressure test kit-medium Kit See Rx Instructions .Route Qty: 1 0RF Rx Instructions: As directed to monitor blood pressure daily benzonatate 100 mg capsule 100 mg PO TID MDD 600mg/day Qty: 14 0RF insulin lispro [Humalog KwikPen Insulin] 100 unit/mL insulin pen 3 unit subcut TIDWMEAL 30 Days Qty: 15 2RF Referrals: Amee Peng MD [Primary Care Provider] - Patient/Caregiver Discharge Instructions Print Language: Mosotho Quality Discharge Quality Measures VTE prophylaxis MD Attestestation MD Attestation Patient seen and examined with resident physician Dr. Sandoval. Note reviewed, agree with findings and recommendations. Patient presented with left foot erythema, left fourth toe discoloration and questionable early gangrene. Daughter, 2 grandkids at the bedside. Reviewed all the labs with them. CT angiography showed significant peripheral vascular disease with no flow below the popliteal artery. Family wants her to go to higher level of care for vascular surgical intervention. I did explain to them that there is no vascular surgery production stage manager in our hospital. Family wants to sign AGAINST MEDICAL ADVICE and take her. Did explain the risks of signing AMA, they understood and left hospital AMA.
== END 2025-01-14 14:48 | disposition left against medical advice (07) | DRG 300 ==
LOC: SERX 01-14 05:04 → SERHOLD 01-14 08:57
PROVIDERS: Physician Assistant; Admitting Provider Internal Medicine; Emergency Provider Emergency Medicine; PCP Internal Medicine; Visit Provider Internal Medicine
DX: E11.52 Type 2 diabetes mellitus with diabetic peripheral angiopathy with gangrene (principal); L03.116 Cellulitis of left lower limb; E78.5 Hyperlipidemia, unspecified; I10 Essential (primary) hypertension; R20.2 Paresthesia of skin; R20.0 Anesthesia of skin; Z86.73 Personal history of transient ischemic attack (TIA), and cerebral infarction without residual deficits; Z89.421 Acquired absence of other right toe(s); Z86.14 Personal history of Methicillin resistant Staphylococcus aureus infection; Z79.899 Other long term (current) drug therapy; Z79.84 Long term (current) use of oral hypoglycemic drugs; Z79.02 Long term (current) use of antithrombotics/antiplatelets; Z53.29 Procedure and treatment not carried out because of patient's decision for other reasons
CPT/HCPCS: 36415; 73630; 73706; 80053; 85025; 85652; 86140; A4649; J2543; J3010; J3371; J7050; Q9967

== ENCOUNTER → 2025-06-21 | Outpatient (CLI) | payer MEDICARE, BC, SELFPAY ==
--- NOTE | 2025-06-21 12:56 | XR_ITS ---
Examination: Foot, left, 3 views Technique: AP, oblique, lateral views foot, 3 views Date and time of exam: June 21, 2025 1304 hours INDICATIONS: Left foot redness swelling and pain nonhealing ulcer beginning November 2024 FINDINGS: Prominent cortical bone destruction distal fourth and fifth metatarsals and the entire phalanx fourth digit Severe osteopenia IMPRESSION: Extensive osteomyelitis Consider MRI foot without contrast follow-up
[2025-06-21 14:19] LABS: Basophils # (Auto) 0.1 Thou/mm3 (0.0-0.2); Basophils % (Auto) 1 % (0-2.5); Eosinophils # (Auto) 0.4 Thou/mm3 (0.0-0.5); Eosinophils % (Auto) 6 % (0-10); Hematocrit 35.0 % (36.0-46.0); Hemoglobin 11.5 g/dL (12.0-16.0); Immature Granulocytes Auto 0.03 Thou/mm3 (0.00-0.00); Lymphocytes # (Auto) 1.9 Thou/mm3 (1.0-4.8); Lymphocytes % (Auto) 30 % (10-50); Mean Corpuscular HGB Conc 32.9 g/dl (31.0-37.0); Mean Corpuscular Hemoglobin 28.5 pg (25.0-35.0); Mean Corpuscular Volume 87 fL (80-100); Monocytes # (Auto) 0.6 Thou/mm3 (0.0-0.8); Monocytes % (Auto) 10 % (0-12); Neutrophils # (Auto) 3.3 Thou/mm3 (1.8-7.7); Neutrophils % (Auto) 53 % (37-80); Nucleated Red Blood Cell # 0.00 Thou/mm3 (0.00-0.00); Nucleated Red Blood Cell % 0 /100 WBC (0); Platelet Count 209 Thou/mm3 (140-440); RDW Standard Deviation 45.0 fL (36.4-46.3); Red Blood Count 4.03 Miln/mm3 (4.00-5.20); White Blood Count 6.3 Thou/mm3 (3.6-11.0)
[2025-06-21 14:26] LABS: Glucose Estimated Average 169 mg/dL (80-131); Hemoglobin A1C 7.5 % Hgb (4.8-6.0)
[2025-06-21 14:27] LABS: Anion Gap 7 (7-16); BUN/Creatinine Ratio 23 Ratio (12-20); Blood Urea Nitrogen 25 mg/dL (9-23); C-Reactive Protein < 0.5 mg/dL (0.0-0.9); Calcium 9.6 mg/dL (8.3-10.6); Carbon Dioxide 28.1 mMol/L (20.0-31.0); Chloride 107 mMol/L (98-107); Creatinine (Component) 1.1 mg/dL (0.6-1.3); Glucose 163 mg/dL (74-106); Osmolality,Calculated 291 (275-295); Potassium 4.2 mMol/L (3.4-5.1); Sodium 142 mMol/L (136-145); eGFR 50 See Note
[2025-06-21 14:37] LABS: Sed Rate (ESR) 12 mm/hr (0-30)
== END | disposition home or self-care (01) ==
LOC: COPL 12:45
PROVIDERS: PCP Allergy & Immunology; Referring Provider Allergy & Immunology; Visit Provider Radiology Diagnostic Radiology
DX: M86.672 Other chronic osteomyelitis, left ankle and foot (principal)
CPT/HCPCS: 36415; 73630; 80048; 83036; 85025; 85652; 86140

== ENCOUNTER → 2025-08-10 | Outpatient (CLI) | payer MEDICARE, BC, SELFPAY ==
[2025-08-10 11:36] LABS: Basophils # (Auto) 0.0 Thou/mm3 (0.0-0.2); Basophils % (Auto) 1 % (0-2.5); Eosinophils # (Auto) 0.2 Thou/mm3 (0.0-0.5); Eosinophils % (Auto) 5 % (0-10); Hematocrit 35.1 % (36.0-46.0); Hemoglobin 11.7 g/dL (12.0-16.0); Immature Granulocytes Auto 0.02 Thou/mm3 (0.00-0.00); Lymphocytes # (Auto) 1.9 Thou/mm3 (1.0-4.8); Lymphocytes % (Auto) 35 % (10-50); Mean Corpuscular HGB Conc 33.3 g/dl (31.0-37.0); Mean Corpuscular Hemoglobin 29.3 pg (25.0-35.0); Mean Corpuscular Volume 88 fL (80-100); Monocytes # (Auto) 0.5 Thou/mm3 (0.0-0.8); Monocytes % (Auto) 10 % (0-12); Neutrophils # (Auto) 2.6 Thou/mm3 (1.8-7.7); Neutrophils % (Auto) 49 % (37-80); Nucleated Red Blood Cell # 0.00 Thou/mm3 (0.00-0.00); Nucleated Red Blood Cell % 0 /100 WBC (0); Platelet Count 244 Thou/mm3 (140-440); RDW Standard Deviation 45.9 fL (36.4-46.3); Red Blood Count 4.00 Miln/mm3 (4.00-5.20); White Blood Count 5.3 Thou/mm3 (3.6-11.0)
[2025-08-10 12:02] LABS: Anion Gap 10 (7-16); BUN/Creatinine Ratio 19 Ratio (12-20); Blood Urea Nitrogen 21 mg/dL (9-23); C-Reactive Protein < 0.5 mg/dL (0.0-0.9); Calcium 9.3 mg/dL (8.3-10.6); Carbon Dioxide 26.8 mMol/L (20.0-31.0); Chloride 105 mMol/L (98-107); Creatinine (Component) 1.1 mg/dL (0.6-1.3); Glucose 114 mg/dL (74-106); Osmolality,Calculated 287 (275-295); Potassium 4.8 mMol/L (3.4-5.1); Sodium 142 mMol/L (136-145); eGFR 50 See Note
[2025-08-10 12:17] LABS: Sed Rate (ESR) 14 mm/hr (0-30)
== END | disposition home or self-care (01) ==
LOC: COPL 10:06
PROVIDERS: PCP Internal Medicine; Referring Provider Allergy & Immunology; Visit Provider Allergy & Immunology
DX: M86.672 Other chronic osteomyelitis, left ankle and foot (principal)
CPT/HCPCS: 36415; 80048; 85025; 85652; 86140

== ENCOUNTER → 2025-09-06 | Outpatient (CLI) | payer MEDICARE, BC, SELFPAY ==
--- NOTE | 2025-09-06 12:43 | XR_ITS ---
Examination: Duplex scan of the lower extremity, unilateral left Date and time of exam: 09/06/2025, 12:48 p.m. INDICATION: Left leg swelling and pain for 3 months. COMPARISON: CTA left lower extremity 01/13/2025. No prior dedicated left lower extremity venous ultrasound. Technique: Duplex scan of the extremity veins using B-mode/grayscale imaging and Doppler spectral analysis and color flow Attention is directed to internal echogenicity, compression and augmentation involving these veins, color flow assessment, spectral analysis Findings: Major deep venous structures in the extremity demonstrate normal course and caliber. There is no evidence of deep vein thrombosis. Normal color flow and spectral analysis Impression: Negative for DVT..
== END | disposition home or self-care (01) ==
PROVIDERS: PCP Internal Medicine; Referring Provider Internal Medicine; Visit Provider Internal Medicine
DX: R60.0 Localized edema (principal)
CPT/HCPCS: 93971

== ENCOUNTER 2025-10-25 11:19 | Emergency (ER) | payer MEDICARE, BC, SELFPAY ==
[2025-10-25 11:45] VITALS: BP 117/51; PULSE 71; RESP 16; TEMP 36.7; O2SAT 96; BMI 32.5
--- NOTE | 2025-10-25 12:01 | XR_ITS ---
Examination: Foot, right, 3 views Technique: AP, oblique, lateral views foot, 3 views Date and time of exam: October 25, 2025, 0201 hours INDICATIONS: Redness to the upper foot beginning 2 days ago, history amputation toes 10 years ago. FINDINGS: Status post amputation at the level of the mid metatarsals Soft tissue swelling dorsum of the foot and surrounding the metatarsals No chinyere cortical bone destruction IMPRESSION: No chinyere cortical bone destruction MRI foot without contrast follow-up would best assess for osteomyelitis, soft tissue abscess
--- NOTE | 2025-10-25 12:48 | XR_ITS ---
Examination: CT right foot with intravenous contrast, 2-D sagittal reconstructions. 2-D coronal reconstructions. 3-D reconstructions. Date and time of exam: October 25, 2025, 1420 hours INDICATION: Right foot swelling and pain today, history amputation toes CTDI: vol (mGy): 3.64 DLP: (mGycm): 132 Technique: Multiple 1.25 mm axial sections of the right foot post intravenous administration 60 cc [id number] have been obtained. 2-D sagittal and coronal reconstructions have been obtained. 3-D reconstructions have been obtained. Low dose protocols were performed. One or more of the following dose reduction techniques were used; automated exposure control, adjustment of the mA and/or KV according to patient size, use of iterative reconstruction technique. Findings: Severe osteopenia Distal tibia fibula intact Calcaneus cuboid navicular intact Cuneiforms intact No chinyere active cortical bone destruction Diffuse edema and soft tissue swelling surrounding the foot No soft tissue abscess IMPRESSION: No osteomyelitis identified Consider MRI foot without contrast follow-up to better assess for osteomyelitis, as clinically warranted
[2025-10-25] MEDS: VANCOMYCIN/NS 1 GM IVPB 200 ML IV (13:03)
[2025-10-25 13:23] LABS: Basophils # (Auto) 0.0 Thou/mm3 (0.0-0.2); Basophils % (Auto) 1 % (0-2.5); Eosinophils # (Auto) 0.3 Thou/mm3 (0.0-0.5); Eosinophils % (Auto) 4 % (0-10); Hematocrit 36.5 % (36.0-46.0); Hemoglobin 12.3 g/dL (12.0-16.0); Immature Granulocytes Auto 0.02 Thou/mm3 (0.00-0.00); Lymphocytes # (Auto) 1.7 Thou/mm3 (1.0-4.8); Lymphocytes % (Auto) 26 % (10-50); Mean Corpuscular HGB Conc 33.7 g/dl (31.0-37.0); Mean Corpuscular Hemoglobin 29.7 pg (25.0-35.0); Mean Corpuscular Volume 88 fL (80-100); Monocytes # (Auto) 0.5 Thou/mm3 (0.0-0.8); Monocytes % (Auto) 8 % (0-12); Neutrophils # (Auto) 4.0 Thou/mm3 (1.8-7.7); Neutrophils % (Auto) 61 % (37-80); Nucleated Red Blood Cell # 0.00 Thou/mm3 (0.00-0.00); Nucleated Red Blood Cell % 0 /100 WBC (0); Platelet Count 167 Thou/mm3 (140-440); RDW Standard Deviation 41.3 fL (36.4-46.3); Red Blood Count 4.14 Miln/mm3 (4.00-5.20); White Blood Count 6.5 Thou/mm3 (3.6-11.0)
[2025-10-25 13:50] LABS: Alanine Aminotransferase 13 U/L (10-49); Albumin, Serum 4.2 gm/dL (3.4-4.8); Albumin/Globulin Ratio 1.6 (1.2-2.2); Alkaline Phosphatase 84 U/L (46-116); Anion Gap 10 (7-16); Aspartate Amino Transferase 35 U/L (0-34); BUN/Creatinine Ratio 22 Ratio (12-20); Bilirubin,Total 0.5 mg/dL (0.3-1.2); Blood Urea Nitrogen 20 mg/dL (9-23); Calcium 9.0 mg/dL (8.3-10.6); Calcium (Corrected) 9.0 mg/dL (8.5-10.1); Carbon Dioxide 27.3 mMol/L (20.0-31.0); Chloride 108 mMol/L (98-107); Creatinine (Component) 0.9 mg/dL (0.6-1.3); Estimated Creatinine Clearance 41.9 mL/min (>60); Globulin 2.7 gm/dL (2.3-3.5); Glucose 185 mg/dL (74-106); Osmolality,Calculated 296 (275-295); Potassium 4.9 mMol/L (3.4-5.1); Sodium 145 mMol/L (136-145); Total Protein 6.9 gm/dL (5.7-8.2); eGFR > 60 See Note
[2025-10-25 14:43] VITALS: BP 189/89; PULSE 92; RESP 22; O2SAT 96
[2025-10-25 15:48] VITALS: BP 123/78; PULSE 68; RESP 16; TEMP 36.6; O2SAT 95
[2025-10-25 17:42] VITALS: BP 119/53; PULSE 75; RESP 18; TEMP 36.8; O2SAT 98
--- NOTE | 2025-10-25 18:03 | PD.EDSKIN ---
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 and 2 toes on the left foot came in in the emergency room due to redness on the dorsal aspect of the right foot for 2 days with pain and mild swelling due to persistence of the symptoms this patient decided to sought consult here in the emergency room Limitations: no limitations Related Data Home Medications ?Medication ?Instructions ?Recorded ?Confirmed clopidogrel 75 mg tablet (Plavix) 75 mg PO QDAY #0 tabs 10/04/17 08/13/24 pregabalin 75 mg capsule 75 mg PO DAILY 05/20/21 08/13/24 rivastigmine tartrate 3 mg capsule 3 mg PO BID 05/20/21 08/13/24 rosuvastatin 20 mg tablet 20 mg PO HS 05/20/21 08/13/24 glimepiride 1 mg tablet 1 mg PO BID 06/01/23 08/13/24 Held on 08/15/24. Instructions: Resume on 08/29/24. Follow up with Dr. Peng on when to resume glimepiride, as you have been started on different medications for your diabetes. promethazine-DM 6.25 mg-15 mg/5 mL 5 ml PO TID 08/12/24 08/13/24 oral syrup lisinopril 10 mg tablet 10 mg PO QDAY 08/13/24 08/13/24 Previous Rx's ?Medication ?Instructions ?Recorded fluconazole 200 mg tablet 200 mg PO BID 30 days #60 tabs 08/15/24 insulin glargine 100 unit/mL (3 10 unit (0.1 mL) subcut QPM 30 08/15/24 mL) subcutaneous pen (Lantus days #3 mL Solostar U-100 Insulin) pen needle, diabetic 32 gauge x #120 ea 08/15/2411/07 benzonatate 100 mg capsule 100 mg PO TID cough #14 caps 08/16/24 blood pressure test kit-medium #1 ea 08/16/24 insulin lispro 100 unit/mL 3 unit (0.03 mL) subcut TIDWMEAL 1 08/16/24 subcutaneous pen (Humalog KwikPen month #15 mL (U-100) Insulin) cephalexin 500 mg capsule 500 mg PO Q12H 10 days #20 caps 10/25/25 sulfamethoxazole 800 1 tab PO Q12H #20 tabs 10/25/25 mg-trimethoprim 160 mg tablet (Bactrim DS) Allergies Allergy/AdvReac Type Severity Reaction Status Date / Time No Known Allergies Allergy Verified 10/25/25 11:23 Review of Systems Review of Systems Systems Reviewed: All systems reviewed, normal except as documented Past Medical History Past Medical History NEUROLOGIC: Positive Neurological Disorders, Cerebrovascular Accident, Transient Ischemic Attacks (TIA), Dementia and Alzheimer's Disease; Negative Seizures CARDIAC: Positive Cardiac Disorders, Coronary Artery Disease, Hypercholesterolemia, Congestive Heart Failure and Hypertension RESPIRATORY: Negative Chronic Obstructive Pulmonary Disease (COPD) or Asthma GASTROINTESTINAL: Positive Gastrointestinal Disorders GENITOURINARY: Positive Genitourinary Disorders; Negative Renal Disease REPRODUCTIVE: Positive Previous Pregnancies MUSCULOSKELETAL: Positive Musculoskeletal Disorders, Arthritis, Carpal Tunnel Syndrome and Fractures ENDOCRINE: Positive Endocrine Disorders and Diabetes Mellitus Type 2; Negative Diabetes Mellitus Type 1 HEMATOLOGIC: Negative Blood Disorders, Anemia or Sickle Cell Disease PSYCHO/SOCIAL: Positive Depression and Anxiety OTHER HISTORY: Positive Hospitalization, Falls and MRSA; Negative Blood Transfusions, Anesthesia Reactions or Cancer Surgical History SURGICAL: Positive Abdominal Surgery and Amputation; Negative Cardiac Surgery Social History SMOKING STATUS: Never smoker SECOND HAND EXPOSURE: No SUBSTANCE USE: does not use ED Exam General Limitations: Present no limitations General appearance: Present alert, in no apparent distress and other (Patient is awake alert oriented not in distress nontoxic looking well-hydrated well-nourished) Head Head exam: Present atraumatic, normocephalic and normal inspection Eye Eye exam: Present normal appearance, PERRL and EOMI ENT ENT exam: Present normal exam, normal oropharynx and mucous membranes moist Neck Neck exam: Present normal inspection, full ROM and trachea midline Chest Chest inspection: Present normal inspection and symmetric chest wall rise; Absent tenderness Respiratory Respiratory exam: Present normal lung sounds bilaterally; Absent respiratory distress, wheezes, accessory muscle use or prolonged expiratory phase Cardiovascular Cardiovascular exam: Present regular rate, normal rhythm and normal heart sounds; Absent bradycardia, tachycardia, irregular rhythm, systolic murmur or diastolic murmur Abdominal Exam Abdominal exam: Present soft and normal bowel sounds; Absent distention, tenderness, guarding, rebound, diminished bowel sounds, hyperactive bowel sounds, hypoactive bowel sounds or organomegaly Extremities Exam Extremities exam: Present normal inspection and full ROM Expanded Lower Extremity Exam Foot/toe exam: Present tenderness (Moderate tenderness on palpation on the right foot), swelling (Mild swelling on the right), erythema (Noted redness on the dorsal aspect of the right), amputation (Amputation on all toes on the right foot) and other (No ulcer no open wound ROM is intact pulses were equal and strong capillary refill less than 2 seconds sensory is intact); Absent abrasion, laceration, ecchymosis, deformity, crepitus, dislocation, puncture wound, foreign body, calcaneal tenderness, tenderness at base of 5th metatarsal, nail avulsion or subungual hematoma Back Exam Back exam: Present normal inspection and full ROM Neurological Exam Neurological exam: Present alert, oriented X3, CN II-XII intact, reflexes normal and other (Patient has unsteady gait due to amputation of the toes and pain on the right); Absent motor sensory deficit Psychiatric Psychiatric exam: Present normal affect and normal mood Skin Skin exam: Present warm, dry, intact, normal color and other (Cellulitis right foot) Course Quality Measures none Orders Category Date Time Status CT Screening NOW Care 10/25/25 12:[address] foot RT w con Stat Exams 10/25/25 12:48 Completed XR foot comp RT min 3V Stat Exams 10/25/25 12:01 Completed CBC Stat Lab 10/25/25 12:55 Completed CMP [Comprehensive Metabolic Panel] Stat Lab 10/25/25 12:55 Completed Vancomycin/Ns 1 gm Ivpb 200 ml Med 10/25/25 12:02 Discontinued IV X1 Vital Signs Vital signs: Vital Signs Temperature 98.1 F 10/25/25 11:45 Pulse Rate 71 10/25/25 11:45 Respiratory Rate 16 10/25/25 11:45 Blood Pressure 117/51 L 10/25/25 11:45 Pulse Oximetry (%) 96 10/25/25 11:45 Oxygen Delivery Method Room Air 10/25/25 11:45 Oxygen saturation is 96% in room air Skin / Abscess / Foreign Body MDM Narrative MDM Narrative:: This is a case of 80-year-old female with history of osteomyelitis diabetes 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 and 2 toes on the left foot came in in the emergency room due to redness on the dorsal aspect of the right foot for 2 days with pain and mild swelling due to persistence of the symptoms this patient decided to sought consult here in the emergency room physical examination patient is awake alert oriented not in distress nontoxic looking well-hydrated well-nourished noted a moderate tenderness on palpation on the dorsal aspect of the right foot with mild swelling plantar aspect is normal no ulcer no open wound no abrasion tender to touch swelling ROM is limited due to pain pulses were full and equal capillary refill less than 2 seconds sensory is intact no calf tenderness negative Fisher signs negative Homans based on my physical examination and history patient symptoms suggestive of possible osteomyelitis versus cellulitis blood test showed no leukocytosis no anemia kidney and liver function is normal no electrolyte imbalance glucose level was 185 x-ray initially on the right foot no osteomyelitis no fracture CT scan with contrast showed no osteomyelitis patient was treated as clindamycin patient was given vancomycin IV here in the emergency room for cellulitis and was discharged with Bactrim and cephalexin there were advised to follow-up with the podiatry and transmission calibration engineer to control the blood sugar and for further evaluation and treatment of cellulitis right foot worsening symptoms or any emergent concern return precaution in the ER is advised to control the diabetes for good when healing Patient was discharged with comfortable condition walking with stable gait. Patient verbalized no further complains explained diagnosis and answered patient question. Patient is comfortable with the proposed management plan including the need to follow up with his/her primary care physician and any specialist if applicable Discussed patient for any urgent condition or worsening sx, He/She needed to go to emergency room immediately or call 911. Patient acknowledge the responsibility to follow up as instructed and to monitor her/his symptoms. For any persistence of the symptoms for more than 3-5 days return precaution advised. Discussed the result of the test and was given printed discharge instruction Patient data External records reviewed:: [facility] previous records Clinical information provided by:: patient Social determinants that could affect healthcare access:: none Patient has the following chronic illnesses:: None How is presenting disease/condition affected by chronic disease/condition?: no chronic disease Evaluation data The following diagnostics were reviewed and interpreted by me:: lab results and radiology exam(s) Lab and/or radiology exams considered but not ordered:: Reviewed Interpretation Summary: Reviewed Medications / Prescriptions Medications or Prescriptions considered but not ordered:: Give Medication administrations:: Medication Administration History Discontinued Medications Vancomycin/Sodium Chloride (Vancomycin/Ns 1 Gm Ivpb) 200 mls @ 120 mls/hr IV X1 ONE Stop: 10/25/25 13:41 Last Infusion: 10/25/25 15:35 Dose: Infused Documented By: Admin: 10/25/25 13:03 Dose: 120 mls/hr Documented By: GEMMA Give Consultations Consultation(s) initiated? (list below): No Diagnosis Skin/Abscess Differential Diagnosis: abscess of skin or subcutaneous tissue and cellulitis Most likely diagnosis given after review of the tests above:: Cellulitis right foot Admission Indicated Admission indicated?: not indicated Explain why admission is indicated or not indicated:: Not indicate Admission Request Was there a request for admission?: No Admission Attestation Admission request attestation: Not indicated Disposition Plan Disposition Plan: Discharge Discharge Attestation Discharge Attestation: The patient and all family members were given an opportunity to ask questions and understood the discharge instructions. Discharge instructions specifically effects, indications for sooner follow up or return to the emergency department, and the expected course of current diagnosis. Patient condition: Stable Discharge Plan Plan Patient Disposition: HOME (Self Care) Patient condition on transfer: Stable Prescriptions/Referrals Prescriptions/Med Rec: New sulfamethoxazole-trimethoprim [Bactrim DS] 800-160 mg tablet 1 tab PO Q12H Qty: 20 0RF cephalexin 500 mg capsule 500 mg PO Q12H 10 Days Qty: 20 0RF No Action clopidogrel [Plavix] 75 MG tablet 75 mg PO QDAY Qty: 0 rosuvastatin 20 mg tablet 20 mg PO HS Patient Comments: TAKE 1 TABLET BY MOUTH EVERY DAY AT NIGHT pregabalin 75 mg capsule 75 mg PO DAILY Patient Comments: TAKE 1 CAPSULE BY MOUTH EVERY DAY rivastigmine tartrate 3 mg capsule 3 mg PO BID Patient Comments: TAKE 1 CAPSULE BY MOUTH TWICE A DAY glimepiride 1 mg tablet 1 mg PO BID Patient Comments: TAKE 1 TABLET BY MOUTH TWICE A DAY promethazine-DM 6.25-15 mg/5 mL syrup 5 ml PO TID Patient Comments: TAKE 5 ML BY MOUTH THREE TIMES A DAY lisinopril 10 mg tablet 10 mg PO QDAY Patient Comments: TAKE 1 TABLET BY MOUTH EVERY DAY fluconazole 200 mg tablet 200 mg PO BID 30 Days Qty: 60 2RF insulin glargine [Lantus Solostar U-100 Insulin] 100 unit/mL (3 mL) insulin pen 10 unit subcut QPM 30 Days Qty: 3 2RF (DME) pen needle, diabetic 32 gauge x 1/6 needle See Rx Instructions .Route Qty: 120 3RF Rx Instructions: As directed for insulin 4x/day (DME) blood pressure test kit-medium Kit See Rx Instructions .Route Qty: 1 0RF Rx Instructions: As directed to monitor blood pressure daily benzonatate 100 mg capsule 100 mg PO TID MDD 600mg/day Qty: 14 0RF insulin lispro [Humalog KwikPen Insulin] 100 unit/mL insulin pen 3 unit subcut TIDWMEAL 30 Days Qty: 15 2RF Referrals: Amee Peng MD [Primary Care Provider, Nephrology] - In 1 week Problem List Clinical Impression: Cellulitis of right foot, Uncontrolled diabetes mellitus Patient/Caregiver Discharge Instructions Education Materials: Diabetes: Activity Tips, Discharge Instructions for Cellulitis, Diabetes- Measuring Glucose at Home, ED Cellulitis Additional Instructions: It is very important to follow-up with your supervisor nuclear medicine for further evaluation and treatment of cellulitis of the right foot also you are also need to see an transmission calibration engineer to control your blood sugar you need to control your blood sugar for good wound healing follow-up with your primary care physician in 2 days for reevaluation and to be referred on the said specialist for any worsening symptoms or any emergent concern return precaution in the ER is advised take your medication as directed finish the course of antibiotic Print Language: Yoruba Stand Alone Forms: [employer]humi Award Info., Patient Portal Info Letter PA/NATALYA Supervising Physician PA/NATALYA Supervising Physician: Dr De Luna
== END 2025-10-25 18:30 | disposition home or self-care (01) ==
PROVIDERS: Nurse Practitioner Family; Emergency Provider Family Medicine; PCP Internal Medicine
DX: L03.115 Cellulitis of right lower limb (principal); E11.9 Type 2 diabetes mellitus without complications
CPT/HCPCS: 36415; 73630; 73701; 80053; 85025; 96365; 96366; 99283; A4649; J3373; Q9967